=== PATIENT | male | born 1995 | race Caucasian/White ===

== ENCOUNTER 2017-07-27 16:30 | Emergency (ER) | payer OTHER ==
[~2017-07-27] VITALS: Ht 167.6 cm; Wt 68.2 kg
[~2017-07-27 16:30] MED LIST: ADV250 IH
[2017-07-27] MEDS ORDERED: ONDANSETRON HCL 4 MG/2 ML VIAL IVP ONE ×2 (17:00→21:00)
[2017-07-27] MEDS ORDERED: SODIUM CHLORIDE 0.9% 1,000 ML IV ONE (17:00)
[2017-07-27 17:10] LABS: BASOPHILS % (AUTO) 0.5 % (0.0-2.0); EOSINOPHILS % (AUTO) 0 % (1.0-6.0); HEMATOCRIT 46.8 % (41-53); HEMOGLOBIN 16.4 g/dL (13.5-17.5); LYMPHOCYTES # (AUTO) 1.7 K/uL (1.0-4.8); MEAN CORPUSCULAR HEMOGLOBIN 30.4 pg (26.0-34.0); MEAN CORPUSCULAR HGB CONC 35.2 G/dL (31.0-37.0); MEAN CORPUSCULAR VOLUME 87 fL (80-100); MONOCYTES # (AUTO) 0.6 K/uL (0.1-1.0); MONOCYTES % (AUTO) 4.9 % (2.0-9.0); NEUTROPHILS # (AUTO) 10.8 K/uL (1.8-7.7); NEUTROPHILS % (AUTO) 81.6 % (40.0-70.0); PLATELET COUNT (AUTO) 231 K/uL (150-450)
[2017-07-27 17:21] LABS: ANION GAP 18 mmol/L (8-16); CALCIUM, TOTAL 9.8 mg/dL (8.8-10.5); CARBON DIOXIDE 20 mmol/L (22-29); CHLORIDE 107 mmol/L (98-107); CREATININE 1.12 mg/dL (0.60-1.30); GLOMERULAR FILTR. RATE CALC > 60 mL/min (>60); GLUCOSE,RANDOM 113 mg/dL (70-110); POTASSIUM 4.2 mmol/L (3.5-5.1); SODIUM SERUM 145 mmol/L (136-145); UREA NITROGEN, BLOOD 13 mg/dL (7-18)
[2017-07-27 17:27] LABS: ALANINE AMINOTRANSFERASE 94 U/L (12-78); ALBUMIN 4.8 g/dL (3.4-5.0); ALKALINE PHOSPHATASE 92 U/L (46-116); ASPARTATE AMINOTRANSFERASE 35 U/L (15-37); BILIRUBIN,TOTAL 1.8 mg/dL (0.1-1.0); TOTAL PROTEIN, SERUM 8.3 g/dL (6.4-8.2)
[2017-07-27 17:53] LABS: PLATELET MORPHOLOGY COMMENT NORMAL
[2017-07-27 20:42] LABS: AMPHET/METH SCREEN,URINE NEGATIVE (NEGATIVE); BARBITURATE SCREEN, URINE NEGATIVE (NEGATIVE); BENZODIAZEPINES SCREEN,URINE NEGATIVE (NEGATIVE); CANNABINOID SCREEN,URINE NEGATIVE (NEGATIVE); COCAINE SCREEN,URINE NEGATIVE (NEGATIVE); METHADONE SCREEN, URINE NEGATIVE (NEGATIVE); OPIATE SCREEN,URINE NEGATIVE (NEGATIVE)
[2017-07-27 20:44] LABS: PHENCYCLIDINE SCREEN,URINE NEGATIVE (NEGATIVE)
[2017-07-27 21:06] VITALS: BP 116/68
== END 2017-07-27 21:10 | disposition home or self-care (01) ==
LOC: EMS 16:32
DX: F41.9 Anxiety disorder, unspecified (principal); K29.20 Alcoholic gastritis without bleeding; J45.909 Unspecified asthma, uncomplicated; Z88.0 Allergy status to penicillin; Z79.899 Other long term (current) drug therapy
CPT/HCPCS: 36415; 80053; 80307; 85025; 96374; 96376; 99284; G0480; J2405; J7030

== ENCOUNTER 2019-06-27 07:53 | Emergency (ER) | payer OTHER ==
[~2019-06-27] VITALS: Ht 170.2 cm; Wt 70.5 kg
[2019-06-27] MEDS ORDERED: ACETAMINOPHEN 500 MG TABLET PO ONE (08:15)
[2019-06-27] MEDS ORDERED: SODIUM CHLORIDE 0.9% 1,000 ML IV ONE (08:15)
[2019-06-27] MEDS ORDERED: KETOROLAC TROMETHAMINE 30 MG/ML VIAL IVP ONE (08:15)
[2019-06-27] MEDS ORDERED: ONDANSETRON HCL 4 MG/2 ML VIAL IVP ONE (08:15)
[2019-06-27] MEDS ORDERED: FAMOTIDINE 10 MG/ML 2 ML VIAL IVP ONE (08:15)
[2019-06-27] MEDS ORDERED: MAG HYDROX/AL HYDROX/SIMETH 30 ML SUSP UDCUP PO ONE (08:15)
[2019-06-27] MEDS ORDERED: IOVERSOL 320 MG/ML 100 ML VIAL ONE (08:17)
[2019-06-27] MEDS ORDERED: SODIUM CHLORIDE 0.9% 100 ML ONE (08:17)
[2019-06-27 08:34] LABS: BASOPHILS % (AUTO) 0.9 % (0.0-2.0); HEMATOCRIT 48.7 % (41-53); HEMOGLOBIN 16.7 g/dL (13.5-17.5); LYMPHOCYTES # (AUTO) 2.2 K/uL (1.0-4.8); LYMPHOCYTES % (AUTO) 30.9 % (22.0-44.0); MEAN CORPUSCULAR HEMOGLOBIN 30.7 pg (26.0-34.0); MEAN CORPUSCULAR HGB CONC 34.2 G/dL (31.0-37.0); MEAN CORPUSCULAR VOLUME 90 fL (80-100); MONOCYTES # (AUTO) 0.5 K/uL (0.1-1.0); MONOCYTES % (AUTO) 6.8 % (2.0-9.0); NEUTROPHILS # (AUTO) 4.2 K/uL (1.8-7.7); NEUTROPHILS % (AUTO) 59.4 % (40.0-70.0); PLATELET COUNT (AUTO) 231 K/uL (150-450); RED BLOOD CELL COUNT(AUTO) 5.43 MIL/uL (4.50-5.90); RED CELL DISTRIBUTION WIDTH 13.3 % (11.5-14.5)
[2019-06-27 08:46] LABS: ANION GAP 14 mmol/L (8-16); CALCIUM, TOTAL 9.5 mg/dL (8.8-10.5); CARBON DIOXIDE 23 mmol/L (22-29); CHLORIDE 103 mmol/L (98-107); CREATININE 1.08 mg/dL (0.60-1.30); GLOMERULAR FILTR. RATE CALC > 60 mL/min (>60); GLUCOSE,RANDOM 95 mg/dL (70-110); POTASSIUM 3.8 mmol/L (3.5-5.1); SODIUM SERUM 140 mmol/L (136-145); UREA NITROGEN, BLOOD 13 mg/dL (7-18)
[2019-06-27 08:49] LABS: ALANINE AMINOTRANSFERASE 83 U/L (12-78); ALBUMIN 4.3 g/dL (3.4-5.0); ALKALINE PHOSPHATASE 79 U/L (46-116); ASPARTATE AMINOTRANSFERASE 32 U/L (15-37); LIPASE 124 U/L (73-393); TOTAL PROTEIN, SERUM 7.6 g/dL (6.4-8.2)
[2019-06-27 09:02] LABS: BILIRUBIN,TOTAL 2.4 mg/dL (0.1-1.0)
[2019-06-27 09:46] LABS: APPEARANCE,URINE CLEAR (CLEAR); BILIRUBIN,URINE NEGATIVE (NEGATIVE); GLUCOSE, URINE (UA) NEGATIVE (NEGATIVE); KETONES,URINE NEGATIVE (NEGATIVE); LEUKOCYTE ESTERASE ,URINE NEGATIVE (NEGATIVE); NITRATE,URINE NEGATIVE (NEGATIVE); OCCULT BLOOD,URINE NEGATIVE (NEGATIVE); PH,URINE 6.5 (5.0-8.0); PROTEIN,URINE NEGATIVE (NEGATIVE); UROBILINOGEN,URINE 0.2 mg/dL (<=1.0)
[2019-06-27 10:30] VITALS: BP 121/66
== END 2019-06-27 10:40 | disposition home or self-care (01) ==
LOC: EMS 07:54
DX: R10.33 Periumbilical pain (principal); R11.0 Nausea; J45.909 Unspecified asthma, uncomplicated; Z88.0 Allergy status to penicillin
CPT/HCPCS: 36415; 74177; 80053; 81003; 83690; 85025; 96374; 96375; 99285; J1885; J2405; J3490; J7030; J7050; Q9967

== ENCOUNTER 2019-08-09 17:30 | Inpatient (IN) | payer MEDICAID, OTHER ==
[~2019-08-09] VITALS: Ht 170.2 cm; Wt 66.2 kg
[2019-08-09 19:50] LABS: BASOPHILS % (AUTO) 0.7 % (0.0-2.0); EOSINOPHILS % (AUTO) 0.4 % (1.0-6.0); HEMATOCRIT 48.7 % (41-53); HEMOGLOBIN 16.4 g/dL (13.5-17.5); LYMPHOCYTES # (AUTO) 2.6 K/uL (1.0-4.8); MEAN CORPUSCULAR HEMOGLOBIN 30.3 pg (26.0-34.0); MEAN CORPUSCULAR HGB CONC 33.7 G/dL (31.0-37.0); MEAN CORPUSCULAR VOLUME 90 fL (80-100); MONOCYTES # (AUTO) 0.7 K/uL (0.1-1.0); MONOCYTES % (AUTO) 4.8 % (2.0-9.0); NEUTROPHILS # (AUTO) 10.2 K/uL (1.8-7.7); NEUTROPHILS % (AUTO) 75.1 % (40.0-70.0); PLATELET COUNT (AUTO) 243 K/uL (150-450); RED BLOOD CELL COUNT(AUTO) 5.41 MIL/uL (4.50-5.90); RED CELL DISTRIBUTION WIDTH 13.2 % (11.5-14.5)
[2019-08-09] MEDS ORDERED: LIDOCAINE 5% TRANSDERMAL PATCH TD ONE (20:15)
[2019-08-09] MEDS ORDERED: ACETAMINOPHEN 500 MG TABLET PO ONE (20:15)
[2019-08-09 20:17] LABS: ANION GAP 12 mmol/L (8-16); CALCIUM, TOTAL 9.7 mg/dL (8.8-10.5); CARBON DIOXIDE 21 mmol/L (22-29); CHLORIDE 105 mmol/L (98-107); CREATININE 1.03 mg/dL (0.60-1.30); GLOMERULAR FILTR. RATE CALC > 60 mL/min (>60); GLUCOSE,RANDOM 97 mg/dL (70-110); POTASSIUM 3.6 mmol/L (3.5-5.1); SODIUM SERUM 138 mmol/L (136-145); UREA NITROGEN, BLOOD 9 mg/dL (7-18)
[2019-08-09] MEDS ORDERED: SODIUM CHLORIDE 0.9% 100 ML ONE (20:34)
[2019-08-09] MEDS ORDERED: IOVERSOL 350 MG/ML 100 ML VIAL ONE (20:35)
[2019-08-09 20:42] LABS: ALANINE AMINOTRANSFERASE 53 U/L (12-78); ALBUMIN 4.2 g/dL (3.4-5.0); ALKALINE PHOSPHATASE 85 U/L (46-116); ASPARTATE AMINOTRANSFERASE 23 U/L (15-37); BILIRUBIN,TOTAL 0.8 mg/dL (0.1-1.0); CREATINE KINASE, TOTAL ONLY 130 U/L (39-308); TOTAL PROTEIN, SERUM 7.7 g/dL (6.4-8.2)
[2019-08-09 20:54] LABS: ACETAMINOPHEN < 2 mcg/mL (10-30); SALICYLATE < 2.8 mg/dL (2.8-20.0)
[2019-08-09 21:23] LABS: AMPHET/METH SCREEN,URINE NEGATIVE (NEGATIVE); BARBITURATE SCREEN, URINE NEGATIVE (NEGATIVE); BENZODIAZEPINES SCREEN,URINE NEGATIVE (NEGATIVE); CANNABINOID SCREEN,URINE NEGATIVE (NEGATIVE); COCAINE SCREEN,URINE NEGATIVE (NEGATIVE); METHADONE SCREEN, URINE NEGATIVE (NEGATIVE); OPIATE SCREEN,URINE NEGATIVE (NEGATIVE); PHENCYCLIDINE SCREEN,URINE NEGATIVE (NEGATIVE)
[2019-08-09 21:25] LABS: APPEARANCE,URINE CLEAR (CLEAR); BILIRUBIN,URINE NEGATIVE (NEGATIVE); GLUCOSE, URINE (UA) NEGATIVE (NEGATIVE); KETONES,URINE NEGATIVE (NEGATIVE); LEUKOCYTE ESTERASE ,URINE NEGATIVE (NEGATIVE); NITRATE,URINE NEGATIVE (NEGATIVE); OCCULT BLOOD,URINE NEGATIVE (NEGATIVE); PH,URINE 6.5 (5.0-8.0); PROTEIN,URINE NEGATIVE (NEGATIVE); UROBILINOGEN,URINE 0.2 mg/dL (<=1.0)
[2019-08-09] MEDS ORDERED: HALOPERIDOL 5 MG TABLET PO PRN (22:15)
[2019-08-09] MEDS ORDERED: ZOLPIDEM TARTRATE 10 MG TABLET PO PRN (22:15)
[2019-08-09] MEDS ORDERED: LORazepam 2 MG TABLET PO PRN (22:15)
[2019-08-09] MEDS ORDERED: OxyCODONE HCL 5 MG IR TABLET PO ONE (22:45)
[2019-08-10 10:18] VITALS: BP 138/85
[2019-08-10] MEDS ORDERED: INFLUENZA VIRUS VACCINE QVS 2019-20 (3YR+)/PF 60 MCG/0.5 ML SYRINGE IM ONE (11:45)
[2019-08-10] MEDS: BuPROPion HCL XL 150 MG ER TABLET PO SCH (13:08)
[2019-08-10 16:45] VITALS: BP 130/68
[2019-08-10] MEDS ORDERED: MAG HYDROX/AL HYDROX/SIMETH ES 30 ML SUSPENSION UDCUP PO PRN (16:45)
[2019-08-10] MEDS ORDERED: MAGNESIUM HYDROXIDE SUSPENSION 30 ML UDCUP PO PRN (16:45)
[2019-08-10] MEDS ORDERED: DOCUSATE SODIUM 100 MG CAPSULE PO PRN (16:45)
[2019-08-10] MEDS ORDERED: PETROLATUM,WHITE 28 GM JELLY TP PRN (16:45)
[2019-08-10] MEDS ORDERED: ACETAMINOPHEN 325 MG TABLET PO PRN (16:45)
[2019-08-10] MEDS ORDERED: GuaiFENesin/D-METHORPHAN [SUGAR-FREE] 200-20MG/10 ML SYRUP UDCUP PO PRN (16:45)
[2019-08-10] MEDS ORDERED: NICOTINE 14 MG/24 HOUR PATCH TD PRN (16:45)
[2019-08-10] MEDS ORDERED: CloNIDine HCL 0.1 MG TABLET PO PRN (16:45)
[2019-08-10] MEDS ORDERED: ONDANSETRON HCL 4 MG TABLET PO PRN (16:45)
[2019-08-10] MEDS ORDERED: IBUPROFEN 400 MG TABLET PO PRN (16:45)
[2019-08-10] MEDS ORDERED: ALBUTEROL SULFATE HFA 90 MCG/PUFF 8 GM INHALER IH PRN (16:45)
[2019-08-10] MEDS ORDERED: LOPERAMIDE HCL 2 MG CAPSULE PO PRN (16:45)
[2019-08-11 07:54] LABS: BASOPHILS % (AUTO) 0.7 % (0.0-2.0); EOSINOPHILS % (AUTO) 1.8 % (1.0-6.0); HEMATOCRIT 46.8 % (41-53); HEMOGLOBIN 16.1 g/dL (13.5-17.5); LYMPHOCYTES # (AUTO) 2.2 K/uL (1.0-4.8); LYMPHOCYTES % (AUTO) 31.1 % (22.0-44.0); MEAN CORPUSCULAR HEMOGLOBIN 31.2 pg (26.0-34.0); MEAN CORPUSCULAR HGB CONC 34.3 G/dL (31.0-37.0); MEAN CORPUSCULAR VOLUME 91 fL (80-100); MONOCYTES # (AUTO) 0.6 K/uL (0.1-1.0); MONOCYTES % (AUTO) 8.7 % (2.0-9.0); NEUTROPHILS % (AUTO) 57.7 % (40.0-70.0); PLATELET COUNT (AUTO) 213 K/uL (150-450); RED BLOOD CELL COUNT(AUTO) 5.15 MIL/uL (4.50-5.90); RED CELL DISTRIBUTION WIDTH 13.8 % (11.5-14.5)
[2019-08-11] MEDS: BuPROPion HCL XL 150 MG ER TABLET PO SCH (08:10)
[2019-08-11 08:23] LABS: ALANINE AMINOTRANSFERASE 55 U/L (12-78); ALKALINE PHOSPHATASE 79 U/L (46-116); ANION GAP 9 mmol/L (8-16); ASPARTATE AMINOTRANSFERASE 30 U/L (15-37); BILIRUBIN,TOTAL 2.3 mg/dL (0.1-1.0); CARBON DIOXIDE 25 mmol/L (22-29); CHLORIDE 105 mmol/L (98-107); CHOLESTEROL 139 mg/dL (131-200); CREATININE 1.11 mg/dL (0.60-1.30); GLOMERULAR FILTR. RATE CALC > 60 mL/min (>60); GLUCOSE,RANDOM 93 mg/dL (70-110); HDL CHOLESTEROL 46 mg/dL (40-60); LDL CHOL (CALC.) 76 mg/dL (0-130); POTASSIUM 4.5 mmol/L (3.5-5.1); SODIUM SERUM 139 mmol/L (136-145); TOTAL PROTEIN, SERUM 7.5 g/dL (6.4-8.2); TRIGLYCERIDES 87 mg/dL (15-150); UREA NITROGEN, BLOOD 18 mg/dL (7-18)
[2019-08-11 08:29] LABS: HEMOGLOBIN A1C 5.2 % (3.8-5.6)
[2019-08-11 08:54] VITALS: BP 140/88
[2019-08-11 17:08] VITALS: BP 141/78
[2019-08-12] MEDS: BuPROPion HCL XL 150 MG ER TABLET PO SCH (08:55)
[2019-08-12 09:53] VITALS: BP 127/75
[2019-08-12] MEDS ORDERED: BUPR75 PO (13:36)
== END 2019-08-12 15:00 | disposition home or self-care (01) | DRG 881 ==
LOC: EMS 17:31 → 3EI 08-10 02:24
PROVIDERS: ADMIT Psychiatry & Neurology Psychiatry; ATTEND Psychiatry & Neurology Psychiatry
DX: F32.9 Major depressive disorder, single episode, unspecified (principal); R45.851 Suicidal ideations; S22.41XA Multiple fractures of ribs, right side, initial encounter for closed fracture; D72.829 Elevated white blood cell count, unspecified; F10.10 Alcohol abuse, uncomplicated; F43.10 Post-traumatic stress disorder, unspecified; J45.909 Unspecified asthma, uncomplicated; G47.00 Insomnia, unspecified; F41.9 Anxiety disorder, unspecified; Y09 Assault by unspecified means; Y93.89 Activity, other specified; Y92.89 Other specified places as the place of occurrence of the external cause; Y99.8 Other external cause status; F19.10 Other psychoactive substance abuse, uncomplicated
CPT/HCPCS: 71260; 74177; 83036; G0238; G0480; G0481; J7050

== ENCOUNTER 2019-12-03 18:43 | Inpatient (IN) | payer MEDICAID ==
[~2019-12-03] VITALS: Ht 170.2 cm; Wt 82.6 kg
[~2019-12-03 18:43] MED LIST changes: -ADV250 IH; +BUPR-47 PO; +OLAN5TAB27 PO
[2019-12-03] MEDS ORDERED: OLAN5TAB2 PO (18:58)
[2019-12-03] MEDS ORDERED: BUPR75 PO (18:58)
[2019-12-03] MEDS ORDERED: ESCI20TA87 PO (19:22)
[2019-12-03] MEDS ORDERED: PRAZ1 PO (19:22)
[2019-12-03] MEDS ORDERED: OLAN10TA3 PO (19:24)
[2019-12-03] MEDS ORDERED: LORazepam 2 MG TABLET PO PRN (19:30)
[2019-12-03] MEDS ORDERED: HALOPERIDOL 5 MG TABLET PO PRN (19:30)
[2019-12-03 19:55] VITALS: BP 132/85
[2019-12-03 20:35] VITALS: BP 128/82
[2019-12-04 06:52] VITALS: BP 107/66
[2019-12-04 08:31] VITALS: BP 110/64
[2019-12-04 08:53] LABS: BASOPHILS % (AUTO) 1.2 % (0.0-2.0); EOSINOPHILS % (AUTO) 3.7 % (1.0-6.0); HEMOGLOBIN 14.5 g/dL (13.5-17.5); LYMPHOCYTES # (AUTO) 2.2 K/uL (1.0-4.8); LYMPHOCYTES % (AUTO) 33.1 % (22.0-44.0); MEAN CORPUSCULAR HEMOGLOBIN 30.5 pg (26.0-34.0); MEAN CORPUSCULAR HGB CONC 33.8 G/dL (31.0-37.0); MEAN CORPUSCULAR VOLUME 90 fL (80-100); MONOCYTES # (AUTO) 0.6 K/uL (0.1-1.0); MONOCYTES % (AUTO) 8.2 % (2.0-9.0); NEUTROPHILS # (AUTO) 3.6 K/uL (1.8-7.7); NEUTROPHILS % (AUTO) 53.8 % (40.0-70.0); PLATELET COUNT (AUTO) 175 K/uL (150-450); RED BLOOD CELL COUNT(AUTO) 4.77 MIL/uL (4.50-5.90); RED CELL DISTRIBUTION WIDTH 13.1 % (11.5-14.5)
[2019-12-04] MEDS ORDERED: BuPROPion HCL XL 150 MG ER TABLET PO SCH (09:00)
[2019-12-04 09:11] LABS: HEMOGLOBIN A1C 5.3 % (3.8-5.6)
[2019-12-04 09:47] LABS: ALANINE AMINOTRANSFERASE 55 U/L (12-78); ALBUMIN 3.5 g/dL (3.4-5.0); ALKALINE PHOSPHATASE 70 U/L (46-116); ANION GAP 9 mmol/L (8-16); ASPARTATE AMINOTRANSFERASE 26 U/L (15-37); BILIRUBIN,TOTAL 0.7 mg/dL (0.1-1.0); CALCIUM, TOTAL 8.6 mg/dL (8.8-10.5); CARBON DIOXIDE 25 mmol/L (22-29); CHLORIDE 108 mmol/L (98-107); CHOL/HDL RATIO 4.4 (4.2-7.3); CHOLESTEROL 159 mg/dL (131-200); CREATININE 1.07 mg/dL (0.60-1.30); GLOMERULAR FILTR. RATE CALC > 60 mL/min (>60); GLUCOSE,RANDOM 91 mg/dL (70-110); HDL CHOLESTEROL 36 mg/dL (40-60); LDL CHOL (CALC.) 63 mg/dL (0-130); POTASSIUM 4.3 mmol/L (3.5-5.1); SODIUM SERUM 142 mmol/L (136-145); THYROID STIMULATING HORMONE 1.54 uIU/mL (0.36-3.74); TOTAL PROTEIN, SERUM 6.9 g/dL (6.4-8.2); TRIGLYCERIDES 302 mg/dL (15-150); UREA NITROGEN, BLOOD 18 mg/dL (7-18)
[2019-12-04] MEDS ORDERED: BUPR-93 PO (13:21)
[2019-12-04 14:20] VITALS: BP 115/83
[2019-12-04 16:46] VITALS: BP 115/83
[2019-12-04] MEDS: PRAZOSIN HCL 2 MG CAPSULE PO SCH (20:22)
[2019-12-04] MEDS: OLANZapine 10 MG TABLET PO SCH (20:22)
[2019-12-05 03:50] VITALS: BP 118/70
[2019-12-05] MEDS: ESCITALOPRAM OXALATE 20 MG TABLET PO SCH (08:34)
[2019-12-05] MEDS: BuPROPion HCL XL 150 MG ER TABLET PO SCH (08:34)
[2019-12-05 09:09] VITALS: BP 130/74
[2019-12-05 16:20] VITALS: BP 136/78
[2019-12-05 20:00] VITALS: BP 118/72
[2019-12-05] MEDS: PRAZOSIN HCL 2 MG CAPSULE PO SCH (20:14)
[2019-12-05] MEDS: OLANZapine 10 MG TABLET PO SCH (20:15)
[2019-12-05] MEDS: ZOLPIDEM TARTRATE 10 MG TABLET PO PRN (21:50)
[2019-12-06 00:45] VITALS: BP 128/69
[2019-12-06] MEDS: ESCITALOPRAM OXALATE 20 MG TABLET PO SCH (08:36)
[2019-12-06] MEDS: BuPROPion HCL XL 150 MG ER TABLET PO SCH (08:36)
[2019-12-06 09:06] VITALS: BP 111/65
[2019-12-06 16:22] VITALS: BP 114/71
[2019-12-06 20:00] VITALS: BP 118/76
[2019-12-06] MEDS: OLANZapine 10 MG TABLET PO SCH (20:09)
[2019-12-06] MEDS: PRAZOSIN HCL 2 MG CAPSULE PO SCH (20:09)
[2019-12-06] MEDS: ZOLPIDEM TARTRATE 10 MG TABLET PO PRN (20:59)
[2019-12-07 06:40] VITALS: BP 110/57
[2019-12-07 08:47] VITALS: BP 114/63
[2019-12-07] MEDS: BuPROPion HCL XL 150 MG ER TABLET PO SCH (08:50)
[2019-12-07] MEDS: ESCITALOPRAM OXALATE 20 MG TABLET PO SCH (08:50)
[2019-12-07] MEDS ORDERED: PRAZ2 PO (13:25)
== END 2019-12-07 15:03 | disposition home or self-care (01) | DRG 885 ==
LOC: B2S 19:35
PROVIDERS: ADMIT Psychiatry & Neurology Psychiatry; ATTEND Psychiatry & Neurology Psychiatry
DX: F33.2 Major depressive disorder, recurrent severe without psychotic features (principal); R45.851 Suicidal ideations; E78.5 Hyperlipidemia, unspecified; F10.10 Alcohol abuse, uncomplicated; F43.10 Post-traumatic stress disorder, unspecified; J45.909 Unspecified asthma, uncomplicated; Z88.0 Allergy status to penicillin; Y92.89 Other specified places as the place of occurrence of the external cause
CPT/HCPCS: 83036; 84439; 84443; 87081

== ENCOUNTER 2020-02-02 10:11 | Inpatient (IN) | payer MEDICAID, OTHER ==
[~2020-02-02] VITALS: Ht 170.2 cm; Wt 70.1 kg
[~2020-02-02 10:11] MED LIST changes: -BUPR-47 PO; +BUPR-93 PO; +ESCI20TA87 PO; +OLAN10TA3 PO; -OLAN5TAB27 PO; +PRAZ2 PO
[2020-02-02 12:45] LABS: ANION GAP 12 mmol/L (8-16); CALCIUM, TOTAL 9.6 mg/dL (8.8-10.5); CARBON DIOXIDE 24 mmol/L (22-29); CHLORIDE 106 mmol/L (98-107); CREATININE 1.12 mg/dL (0.60-1.30); GLOMERULAR FILTR. RATE CALC > 60 mL/min (>60); GLUCOSE,RANDOM 104 mg/dL (70-110); POTASSIUM 3.8 mmol/L (3.5-5.1); SODIUM SERUM 142 mmol/L (136-145); UREA NITROGEN, BLOOD 15 mg/dL (7-18)
[2020-02-02 12:53] LABS: ALANINE AMINOTRANSFERASE 50 U/L (12-78); ALBUMIN 4.4 g/dL (3.4-5.0); ALKALINE PHOSPHATASE 84 U/L (46-116); ASPARTATE AMINOTRANSFERASE 21 U/L (15-37); BILIRUBIN,TOTAL 1.4 mg/dL (0.1-1.0); TOTAL PROTEIN, SERUM 8.1 g/dL (6.4-8.2)
[2020-02-02 13:02] LABS: BASOPHILS % (AUTO) 0.7 % (0.0-2.0); EOSINOPHILS % (AUTO) 0.7 % (1.0-6.0); HEMATOCRIT 46.5 % (41-53); HEMOGLOBIN 15.7 g/dL (13.5-17.5); LYMPHOCYTES # (AUTO) 1.9 K/uL (1.0-4.8); LYMPHOCYTES % (AUTO) 19.9 % (22.0-44.0); MEAN CORPUSCULAR HGB CONC 33.7 G/dL (31.0-37.0); MEAN CORPUSCULAR VOLUME 89 fL (80-100); MONOCYTES # (AUTO) 0.5 K/uL (0.1-1.0); MONOCYTES % (AUTO) 5.3 % (2.0-9.0); NEUTROPHILS # (AUTO) 6.8 K/uL (1.8-7.7); NEUTROPHILS % (AUTO) 73.4 % (40.0-70.0); PLATELET COUNT (AUTO) 278 K/uL (150-450); RED BLOOD CELL COUNT(AUTO) 5.23 MIL/uL (4.50-5.90); RED CELL DISTRIBUTION WIDTH 12.9 % (11.5-14.5)
[2020-02-02] MEDS ORDERED: LORazepam 1 MG TABLET PO ONE (14:15)
[2020-02-02] MEDS ORDERED: OLANZapine 5 MG TABLET PO ONE (15:00)
[2020-02-02] MEDS ORDERED: LORazepam 2 MG TABLET PO PRN (16:45)
[2020-02-02] MEDS ORDERED: OLANZapine 5 MG RAPDIS TABLET PO PRN (16:45)
[2020-02-02] MEDS ORDERED: CloNIDine HCL 0.1 MG TABLET PO PRN (18:15)
[2020-02-02] MEDS ORDERED: MAG HYDROX/AL HYDROX/SIMETH ES 30 ML SUSPENSION UDCUP PO PRN (18:15)
[2020-02-02] MEDS ORDERED: NICOTINE 14 MG/24 HOUR PATCH TD PRN (18:15)
[2020-02-02] MEDS ORDERED: LOPERAMIDE HCL 2 MG CAPSULE PO PRN (18:15)
[2020-02-02] MEDS ORDERED: ONDANSETRON HCL 4 MG TABLET PO PRN (18:15)
[2020-02-02] MEDS ORDERED: ACETAMINOPHEN 325 MG TABLET PO PRN (18:15)
[2020-02-02] MEDS ORDERED: MAGNESIUM HYDROXIDE SUSPENSION 30 ML UDCUP PO PRN (18:15)
[2020-02-02] MEDS ORDERED: GuaiFENesin/D-METHORPHAN [SUGAR-FREE] 200-20MG/10 ML SYRUP UDCUP PO PRN (18:15)
[2020-02-02] MEDS ORDERED: DOCUSATE SODIUM 100 MG CAPSULE PO PRN (18:15)
[2020-02-02] MEDS ORDERED: PETROLATUM,WHITE 28 GM JELLY TP PRN (18:15)
[2020-02-02] MEDS ORDERED: IBUPROFEN 400 MG TABLET PO PRN (18:15)
[2020-02-02] MEDS ORDERED: ALBUTEROL SULFATE HFA 90 MCG/PUFF 8 GM INHALER IH PRN (18:15)
[2020-02-02 19:57] VITALS: BP 132/73
[2020-02-02 19:59] VITALS: BP 132/73
[2020-02-03 01:54] VITALS: BP_SYST 103; BP_SYST 133; BP_DIAS 64; BP_DIAS 76
[2020-02-03 08:52] VITALS: BP 129/73
[2020-02-03] MEDS: ESCITALOPRAM OXALATE 20 MG TABLET PO SCH (13:45)
[2020-02-03 16:14] VITALS: BP 118/65
[2020-02-03 20:05] VITALS: BP 114/68
[2020-02-03] MEDS: PRAZOSIN HCL 2 MG CAPSULE PO SCH (20:07)
[2020-02-03] MEDS: OLANZapine 10 MG TABLET PO SCH (20:07)
[2020-02-04 01:29] VITALS: BP 114/56
[2020-02-04] MEDS: BuPROPion HCL XL 150 MG ER TABLET PO SCH (08:46)
[2020-02-04] MEDS: ESCITALOPRAM OXALATE 20 MG TABLET PO SCH (08:46)
[2020-02-04 08:48] VITALS: BP 130/78
[2020-02-04 16:29] VITALS: BP 129/63
[2020-02-04 20:15] VITALS: BP 124/68
[2020-02-04] MEDS: OLANZapine 10 MG TABLET PO SCH (20:18)
[2020-02-04] MEDS: PRAZOSIN HCL 2 MG CAPSULE PO SCH (20:18)
[2020-02-05 00:53] VITALS: BP 107/55
[2020-02-05] MEDS ORDERED: PNEUMOCOCCAL VACCINE POLYVALENT 0.5 ML VIAL [PPSV23] IM ONE (04:45)
[2020-02-05 08:10] VITALS: BP 121/60
[2020-02-05] MEDS: ESCITALOPRAM OXALATE 20 MG TABLET PO SCH (08:30)
[2020-02-05] MEDS: BuPROPion HCL XL 150 MG ER TABLET PO SCH (08:30)
[2020-02-05 08:41] LABS: CHOL/HDL RATIO 3.8 (4.2-7.3)
[2020-02-05 17:52] VITALS: BP 117/62
[2020-02-05] MEDS: OLANZapine 10 MG TABLET PO SCH (20:19)
[2020-02-05] MEDS: PRAZOSIN HCL 2 MG CAPSULE PO SCH (20:19)
[2020-02-06 06:39] VITALS: BP 113/67
[2020-02-06] MEDS: BuPROPion HCL XL 150 MG ER TABLET PO SCH (08:42)
[2020-02-06] MEDS: ESCITALOPRAM OXALATE 20 MG TABLET PO SCH (08:42)
[2020-02-06 09:27] VITALS: BP 130/74
[2020-02-06 16:40] VITALS: BP 117/69
[2020-02-06] MEDS: PRAZOSIN HCL 2 MG CAPSULE PO SCH (20:36)
[2020-02-06] MEDS: OLANZapine 10 MG TABLET PO SCH (20:36)
[2020-02-06] MEDS: ZOLPIDEM TARTRATE 10 MG TABLET PO PRN (20:40)
[2020-02-07 04:35] VITALS: BP 113/59
[2020-02-07] MEDS: BuPROPion HCL XL 150 MG ER TABLET PO SCH (09:06)
[2020-02-07] MEDS: ESCITALOPRAM OXALATE 20 MG TABLET PO SCH (09:06)
[2020-02-07 09:23] VITALS: BP 118/71
[2020-02-07] MEDS: OLANZapine 10 MG TABLET PO SCH (21:06)
[2020-02-07] MEDS: PRAZOSIN HCL 2 MG CAPSULE PO SCH (21:06)
[2020-02-07] MEDS: ZOLPIDEM TARTRATE 10 MG TABLET PO PRN (21:07)
[2020-02-08 00:43] VITALS: BP 118/68
[2020-02-08 08:37] VITALS: BP 129/70
[2020-02-08] MEDS: ESCITALOPRAM OXALATE 20 MG TABLET PO SCH (08:58)
[2020-02-08] MEDS: BuPROPion HCL XL 150 MG ER TABLET PO SCH (08:58)
[2020-02-08 16:22] VITALS: BP 116/70
[2020-02-08] MEDS: OLANZapine 10 MG TABLET PO SCH (20:14)
[2020-02-08] MEDS: PRAZOSIN HCL 2 MG CAPSULE PO SCH (20:14)
[2020-02-08] MEDS: ZOLPIDEM TARTRATE 10 MG TABLET PO PRN (20:23)
[2020-02-09 06:22] VITALS: BP 109/62
[2020-02-09 08:19] VITALS: BP 120/62
[2020-02-09] MEDS: ESCITALOPRAM OXALATE 20 MG TABLET PO SCH (09:20)
[2020-02-09] MEDS: BuPROPion HCL XL 150 MG ER TABLET PO SCH (09:20)
[2020-02-09] MEDS: OMEGA-3/DHA/EPA/FISH OIL 1,000 MG CAPSULE PO SCH (09:21)
[2020-02-09 16:13] VITALS: BP 127/76
[2020-02-09 20:00] VITALS: BP 132/73
[2020-02-09] MEDS: OLANZapine 10 MG TABLET PO SCH (20:05)
[2020-02-09] MEDS: PRAZOSIN HCL 2 MG CAPSULE PO SCH (20:05)
[2020-02-10 04:52] VITALS: BP 120/86
[2020-02-10] MEDS: BuPROPion HCL XL 150 MG ER TABLET PO SCH (08:49)
[2020-02-10] MEDS: OMEGA-3/DHA/EPA/FISH OIL 1,000 MG CAPSULE PO SCH (08:49)
[2020-02-10] MEDS: ESCITALOPRAM OXALATE 20 MG TABLET PO SCH (08:49)
[2020-02-10 08:52] VITALS: BP 138/83
== END 2020-02-10 17:42 | disposition home or self-care (01) | DRG 750 ==
LOC: EMS 10:14 → B2S 16:17
DX: F25.1 Schizoaffective disorder, depressive type (principal); F10.10 Alcohol abuse, uncomplicated; F31.9 Bipolar disorder, unspecified; F43.10 Post-traumatic stress disorder, unspecified; G47.00 Insomnia, unspecified; J45.909 Unspecified asthma, uncomplicated; R45.850 Homicidal ideations; R45.851 Suicidal ideations; Z20.828 Contact with and (suspected) exposure to other viral communicable diseases; Z91.5 Personal history of self-harm; Z79.899 Other long term (current) drug therapy; Z88.0 Allergy status to penicillin
CPT/HCPCS: 87426; G0480

== ENCOUNTER 2020-08-01 22:06 | Emergency (ER) | payer MEDICAID, OTHER ==
[~2020-08-01] VITALS: Ht 170.2 cm; Wt 88.6 kg
[2020-08-01 22:10] VITALS: BP 146/79
[2020-08-01] MEDS ORDERED: LAMO25TA25 PO (22:28)
[2020-08-01] MEDS ORDERED: ZIPR40CA2 PO (22:28)
[2020-08-01] MEDS ORDERED: FLUO-191 PO (22:28)
[2020-08-01] MEDS ORDERED: LORazepam 2 MG TABLET PO ONE (22:45)
== END 2020-08-01 23:02 | disposition home or self-care (01) ==
LOC: EMS 22:06
DX: F41.0 Panic disorder [episodic paroxysmal anxiety] (principal); F32.9 Major depressive disorder, single episode, unspecified
CPT/HCPCS: 99283

== ENCOUNTER 2020-10-01 20:40 | Emergency (ER) | payer OTHER ==
[~2020-10-01] VITALS: Ht 170.2 cm; Wt 88.6 kg
[~2020-10-01 20:40] MED LIST changes: -BUPR-93 PO; -ESCI20TA87 PO; +FLUO-191 PO; +LAMO25TA25 PO; -OLAN10TA3 PO; +ZIPR40CA2 PO
[2020-10-01] MEDS ORDERED: LORazepam 1 MG TABLET PO ONE (21:45)
[2020-10-01 22:52] VITALS: BP 129/80
== END 2020-10-01 23:15 | disposition home or self-care (01) ==
LOC: EMS 20:42
DX: F41.9 Anxiety disorder, unspecified (principal); F31.9 Bipolar disorder, unspecified; I10 Essential (primary) hypertension; J45.909 Unspecified asthma, uncomplicated; Z88.0 Allergy status to penicillin
CPT/HCPCS: 99283

== ENCOUNTER 2020-10-07 19:06 | Emergency (ER) | payer OTHER ==
[~2020-10-07] VITALS: Ht 170.2 cm; Wt 88.6 kg
[2020-10-07] MEDS ORDERED: ACETAMINOPHEN 325 MG TABLET PO ONE (21:15)
[2020-10-07] MEDS ORDERED: LORazepam 1 MG TABLET PO ONE (22:30)
[2020-10-07 23:00] VITALS: BP 133/71
== END 2020-10-07 23:30 | disposition home or self-care (01) ==
LOC: EMS 19:07
DX: F41.9 Anxiety disorder, unspecified (principal); F32.9 Major depressive disorder, single episode, unspecified; J45.909 Unspecified asthma, uncomplicated; Z88.0 Allergy status to penicillin; Z79.899 Other long term (current) drug therapy
CPT/HCPCS: 99283

== ENCOUNTER 2020-10-23 22:03 | Emergency (ER) | payer OTHER ==
[~2020-10-23] VITALS: Ht 170.2 cm; Wt 88.6 kg
[2020-10-23 22:17] VITALS: BP 134/48
[2020-10-23] MEDS ORDERED: VENL-68 PO (22:27)
[2020-10-23] MEDS ORDERED: MIRT-89 PO (22:27)
[2020-10-23] MEDS ORDERED: LORazepam 2 MG TABLET PO ONE (23:45)
== END 2020-10-24 01:23 | disposition home or self-care (01) ==
LOC: EMS 22:05
DX: F41.9 Anxiety disorder, unspecified (principal); F31.9 Bipolar disorder, unspecified; J45.909 Unspecified asthma, uncomplicated; Z88.0 Allergy status to penicillin
CPT/HCPCS: 99283

== ENCOUNTER 2021-03-09 22:44 | Emergency (ER) | payer OTHER ==
[~2021-03-09] VITALS: Ht 170.2 cm; Wt 93.2 kg
[~2021-03-09 22:44] MED LIST changes: -FLUO-191 PO; -LAMO25TA25 PO; +MIRT-89 PO; +VENL-68 PO; -ZIPR40CA2 PO
[2021-03-10 00:15] VITALS: BP 127/77
[2021-03-10] MEDS ORDERED: LORazepam 2 MG TABLET PO ONE (00:15)
== END 2021-03-10 00:33 | disposition home or self-care (01) ==
LOC: EMS 22:47
DX: F43.12 Post-traumatic stress disorder, chronic (principal); F41.9 Anxiety disorder, unspecified; J45.909 Unspecified asthma, uncomplicated; F31.9 Bipolar disorder, unspecified; Z88.0 Allergy status to penicillin
CPT/HCPCS: 99283

== ENCOUNTER 2021-08-01 22:43 | Emergency (ER) | payer OTHER ==
[~2021-08-01] VITALS: Ht 154.9 cm; Wt 81.8 kg
[2021-08-02] MEDS ORDERED: TraMADol HCL 50 MG TABLET PO ONE (00:45)
[2021-08-02] MEDS ORDERED: TRAM50TA4 PO (01:15)
[2021-08-02 01:22] VITALS: BP 146/79
== END 2021-08-02 01:23 | disposition home or self-care (01) ==
LOC: EMS 22:53
DX: K08.89 Other specified disorders of teeth and supporting structures (principal); R51.9 Headache, unspecified; F41.9 Anxiety disorder, unspecified; F31.9 Bipolar disorder, unspecified; Z88.0 Allergy status to penicillin; Z79.899 Other long term (current) drug therapy; J45.909 Unspecified asthma, uncomplicated
CPT/HCPCS: 99283

== ENCOUNTER 2022-11-17 19:27 | Emergency (ER) | payer OTHER ==
[~2022-11-17] VITALS: Ht 170.2 cm; Wt 90.0 kg
[~2022-11-17 19:27] MED LIST changes: +TRAM-559 PO
[2022-11-17 19:45] VITALS: TEMP 98
[2022-11-17 20:04] LABS: COVID AG,FIA SOURCE NASOPHARYNGEAL
[2022-11-17 20:41] LABS: INFLUENZA TYPE A NEGATIVE FOR TYPE A (NEGATIVE); INFLUENZA TYPE B NEGATIVE FOR TYPE B (NEGATIVE)
[2022-11-17] MEDS ORDERED: NIRM1TAB4 PO ×2 (20:51→21:09)
[2022-11-17 21:00] VITALS: BP 128/71; PULSE 102; RESP 18
== END 2022-11-17 21:02 | disposition home or self-care (01) ==
LOC: EMS 19:28
DX: U07.1 COVID-19 (principal); F41.9 Anxiety disorder, unspecified; J45.909 Unspecified asthma, uncomplicated; F32.A Depression, unspecified; Z88.0 Allergy status to penicillin
CPT/HCPCS: 71045; 87430; 87804; 99284

== ENCOUNTER 2023-01-17 19:39 | Inpatient (IN) | payer OTHER ==
[~2023-01-17] VITALS: Ht 167.6 cm; Wt 93.2 kg
[~2023-01-17 19:39] MED LIST changes: +NIRM1TAB4 PO
[2023-01-17] MEDS ORDERED: ATOM40CA9 PO (19:56)
[2023-01-17] MEDS ORDERED: QUET200T PO (19:56)
[2023-01-17] MEDS ORDERED: PROP20TA18 PO (19:56)
[2023-01-17] MEDS ORDERED: DIVA500T53 PO (19:56)
[2023-01-17] MEDS ORDERED: ACETAMINOPHEN 500 MG TABLET PO ONE (21:00)
[2023-01-17 22:10] LABS: COVID AG,FIA SOURCE NASOPHARYNGEAL
[2023-01-17 22:31] LABS: INFLUENZA TYPE A NEGATIVE FOR TYPE A (NEGATIVE); INFLUENZA TYPE B NEGATIVE FOR TYPE B (NEGATIVE)
[2023-01-17 22:49] LABS: BASOPHILS % (AUTO) 0.5 % (0.0-2.0); EOSINOPHILS % (AUTO) 0.1 % (1.0-6.0); HEMATOCRIT 46.2 % (41-53); HEMOGLOBIN 15.5 g/dL (13.5-17.5); LYMPHOCYTES # (AUTO) 1.2 K/uL (1.0-4.8); LYMPHOCYTES % (AUTO) 7.3 % (22.0-44.0); MEAN CORPUSCULAR HEMOGLOBIN 30.8 pg (26.0-34.0); MEAN CORPUSCULAR HGB CONC 33.5 G/dL (31.0-37.0); MEAN CORPUSCULAR VOLUME 92 fL (80-100); MONOCYTES # (AUTO) 1.5 K/uL (0.1-1.0); MONOCYTES % (AUTO) 8.7 % (2.0-9.0); NEUTROPHILS # (AUTO) 14.1 K/uL (1.8-7.7); NEUTROPHILS % (AUTO) 83.4 % (40.0-70.0); PLATELET COUNT (AUTO) 160 K/uL (150-450); RED BLOOD CELL COUNT(AUTO) 5.03 MIL/uL (4.50-5.90); RED CELL DISTRIBUTION WIDTH 13.9 % (11.5-14.5)
[2023-01-17 23:01] LABS: ANION GAP 17 mmol/L (8-16); CALCIUM, TOTAL 9.6 mg/dL (8.8-10.5); CARBON DIOXIDE 17 mmol/L (22-29); CHLORIDE 101 mmol/L (98-107); CREATININE 1.29 mg/dL (0.60-1.30); GLOMERULAR FILTR. RATE CALC > 60 mL/min (>60); GLUCOSE,RANDOM 114 mg/dL (70-110); POTASSIUM 3.9 mmol/L (3.5-5.1); SODIUM SERUM 135 mmol/L (136-145)
[2023-01-17 23:06] LABS: ALANINE AMINOTRANSFERASE 102 U/L (12-78); ALBUMIN 3.7 g/dL (3.4-5.0); ALKALINE PHOSPHATASE 77 U/L (46-116); ASPARTATE AMINOTRANSFERASE 51 U/L (15-37); BILIRUBIN,TOTAL 1.4 mg/dL (0.1-1.0); LIPASE 32 U/L (16-77); TOTAL PROTEIN, SERUM 7.3 g/dL (6.4-8.2)
[2023-01-17] MEDS ORDERED: 0.9% SODIUM CHLORIDE 10 ML SYRINGE IVP PRN (23:15)
[2023-01-17] MEDS ORDERED: SODIUM CHLORIDE 0.9% 2,700 ML IV ONE (23:15)
[2023-01-17] MEDS ORDERED: ONDANSETRON HCL 4 MG/2 ML VIAL IVP ONE (23:30)
[2023-01-17] MEDS ORDERED: HYDROmorphone HCL 2 MG/ML SYRINGE IVP ONE (23:30)
[2023-01-17 23:38] LABS: APPEARANCE,URINE CLEAR (CLEAR); BILIRUBIN,URINE NEGATIVE (NEGATIVE); GLUCOSE, URINE (UA) NEGATIVE (NEGATIVE); KETONES,URINE NEGATIVE (NEGATIVE); LEUKOCYTE ESTERASE ,URINE NEGATIVE (NEGATIVE); NITRATE,URINE NEGATIVE (NEGATIVE); OCCULT BLOOD,URINE NEGATIVE (NEGATIVE); PROTEIN,URINE 30-70 mg/dL (NEGATIVE); SPECIFIC GRAVITIY, URINE 1.037 (1.003-1.030); UROBILINOGEN,URINE <=1.0 mg/dL (<=1.0)
[2023-01-18 00:05] LABS: LACTIC ACID 2.4 mmol/L (0.4-2.0)
[2023-01-18] MEDS ORDERED: LEVOFLOXACIN 500 MG/D5% WATER 100 ML IV ONE (00:15)
[2023-01-18] MEDS ORDERED: MetroNIDAZOLE 500 MG/NACL 100 ML IV ONE (02:00)
[2023-01-18] MEDS ORDERED: 0.9% SODIUM CHLORIDE 10 ML SYRINGE IVP PRN (02:00)
[2023-01-18] MEDS ORDERED: ONDANSETRON HCL 4 MG/2 ML VIAL IVP PRN (02:00)
[2023-01-18] MEDS ORDERED: ACETAMINOPHEN 325 MG TABLET PO PRN (02:00)
[2023-01-18 02:40] VITALS: BP 121/78; PULSE 90; RESP 18; TEMP 98.3
[2023-01-18] MEDS ORDERED: *CLINICAL-LEVOFLOXACIN IVPB DOSING CLINICAL ONE (03:15)
[2023-01-18] MEDS ORDERED: PNEUMOCOCCAL VACCINE POLYVALENT 0.5 ML SYRINGE [PPSV23] IM. ONE (04:30)
[2023-01-18] MEDS: RINGERS SOLUTION,LACTATED 1,000 ML IV SCH ×2 (05:34→21:13)
[2023-01-18 05:37] VITALS: BP 113/76; PULSE 96; RESP 18; TEMP 98.5
[2023-01-18] MEDS: ONDANSETRON HCL 4 MG/2 ML VIAL IVP PRN (05:37)
[2023-01-18] MEDS: ACETAMINOPHEN 325 MG TABLET PO PRN (05:39)
[2023-01-18] MEDS: MetroNIDAZOLE 500 MG TABLET PO SCH ×2 (08:14→17:08)
[2023-01-18] MEDS: DOCUSATE SODIUM 100 MG CAPSULE PO SCH ×3 (08:14→21:00)
[2023-01-18 08:25] VITALS: BP 117/77; PULSE 98; RESP 20; TEMP 99.8
[2023-01-18] MEDS: MORPHINE SULFATE 2 MG/ML SYRINGE IVP PRN ×3 (08:58→21:17)
[2023-01-18 13:43] LABS: BASOPHILS % (AUTO) 0.3 % (0.0-2.0); EOSINOPHILS % (AUTO) 0.1 % (1.0-6.0); HEMATOCRIT 41.9 % (41-53); HEMOGLOBIN 13.8 g/dL (13.5-17.5); LYMPHOCYTES % (AUTO) 8.6 % (22.0-44.0); MEAN CORPUSCULAR HEMOGLOBIN 30.5 pg (26.0-34.0); MEAN CORPUSCULAR HGB CONC 32.9 G/dL (31.0-37.0); MEAN CORPUSCULAR VOLUME 93 fL (80-100); MONOCYTES # (AUTO) 0.9 K/uL (0.1-1.0); NEUTROPHILS # (AUTO) 9.6 K/uL (1.8-7.7); PLATELET COUNT (AUTO) 115 K/uL (150-450); RED BLOOD CELL COUNT(AUTO) 4.51 MIL/uL (4.50-5.90)
[2023-01-18 13:51] LABS: ANION GAP 11 mmol/L (8-16); CALCIUM, TOTAL 8.3 mg/dL (8.8-10.5); CARBON DIOXIDE 23 mmol/L (22-29); CHLORIDE 105 mmol/L (98-107); CREATININE 0.93 mg/dL (0.60-1.30); GLOMERULAR FILTR. RATE CALC > 60 mL/min (>60); GLUCOSE,RANDOM 97 mg/dL (70-110); POTASSIUM 4.1 mmol/L (3.5-5.1); SODIUM SERUM 139 mmol/L (136-145)
[2023-01-18 13:57] LABS: ALANINE AMINOTRANSFERASE 80 U/L (12-78); ALKALINE PHOSPHATASE 60 U/L (46-116); ASPARTATE AMINOTRANSFERASE 41 U/L (15-37); BILIRUBIN,TOTAL 1.2 mg/dL (0.1-1.0); TOTAL PROTEIN, SERUM 6.2 g/dL (6.4-8.2)
[2023-01-18 16:56] VITALS: BP 150/85; PULSE 85; RESP 20; TEMP 98.4
[2023-01-18] MEDS ORDERED: DIPHENOXYLATE/ATROP 2.5-0.025 MG TABLET PO PRN (18:45)
[2023-01-18 19:30] VITALS: BP 138/85; PULSE 98; RESP 20; TEMP 99.5
[2023-01-18] MEDS: QUEtiapine FUMARATE 200 MG TABLET PO SCH (21:14)
[2023-01-19] MEDS ORDERED: SODIUM CHLORIDE 0.9% 0 ML IV ONE (00:21)
[2023-01-19] MEDS: MetroNIDAZOLE 500 MG TABLET PO SCH ×4 (00:27→23:52)
[2023-01-19] MEDS: AZITHROMYCIN 500 MG/NS 250 ML IV SCH ×2 (00:28→23:52)
[2023-01-19] MEDS ORDERED: LEVOFLOXACIN 500 MG/D5% WATER 100 ML IV SCH (01:00)
[2023-01-19] MEDS: ONDANSETRON HCL 4 MG/2 ML VIAL IVP PRN ×2 (02:35→10:39)
[2023-01-19 02:36] VITALS: BP 110/60; PULSE 80; RESP 18; TEMP 98.7
[2023-01-19] MEDS: MORPHINE SULFATE 2 MG/ML SYRINGE IVP PRN ×2 (02:36→10:39)
[2023-01-19 07:03] LABS: BASOPHILS % (AUTO) 0.3 % (0.0-2.0); EOSINOPHILS % (AUTO) 0.1 % (1.0-6.0); HEMATOCRIT 39.2 % (41-53); HEMOGLOBIN 13.2 g/dL (13.5-17.5); LYMPHOCYTES # (AUTO) 3.1 K/uL (1.0-4.8); LYMPHOCYTES % (AUTO) 28.4 % (22.0-44.0); MEAN CORPUSCULAR HEMOGLOBIN 31.8 pg (26.0-34.0); MEAN CORPUSCULAR HGB CONC 33.6 G/dL (31.0-37.0); MEAN CORPUSCULAR VOLUME 95 fL (80-100); MONOCYTES # (AUTO) 1.4 K/uL (0.1-1.0); MONOCYTES % (AUTO) 12.6 % (2.0-9.0); NEUTROPHILS # (AUTO) 6.5 K/uL (1.8-7.7); NEUTROPHILS % (AUTO) 58.6 % (40.0-70.0); PLATELET COUNT (AUTO) 111 K/uL (150-450); RED BLOOD CELL COUNT(AUTO) 4.15 MIL/uL (4.50-5.90); RED CELL DISTRIBUTION WIDTH 13.9 % (11.5-14.5)
[2023-01-19 07:23] LABS: ALANINE AMINOTRANSFERASE 84 U/L (12-78); ALBUMIN 2.8 g/dL (3.4-5.0); ALKALINE PHOSPHATASE 53 U/L (46-116); ANION GAP 9 mmol/L (8-16); ASPARTATE AMINOTRANSFERASE 48 U/L (15-37); BILIRUBIN,TOTAL 0.8 mg/dL (0.1-1.0); CALCIUM, TOTAL 8.2 mg/dL (8.8-10.5); CARBON DIOXIDE 25 mmol/L (22-29); CHLORIDE 106 mmol/L (98-107); CREATININE 1.01 mg/dL (0.60-1.30); GLOMERULAR FILTR. RATE CALC > 60 mL/min (>60); GLUCOSE,RANDOM 90 mg/dL (70-110); POTASSIUM 4.3 mmol/L (3.5-5.1); SODIUM SERUM 140 mmol/L (136-145)
[2023-01-19 08:00] VITALS: BP 110/64; PULSE 88; RESP 17; TEMP 98.9
[2023-01-19] MEDS: HEPARIN SODIUM,PORCINE 5,000 UNITS/ML VIAL SQ SCH ×3 (08:26→23:52)
[2023-01-19] MEDS: DOCUSATE SODIUM 100 MG CAPSULE PO SCH ×2 (09:00→19:36)
[2023-01-19] MEDS: RINGERS SOLUTION,LACTATED 1,000 ML IV SCH (10:49)
[2023-01-19] MEDS: AZTREONAM 2 GM in DEXTROSE 5%-WATER 50 ML IV SCH ×2 (13:12→20:16)
[2023-01-19 20:00] VITALS: BP 121/65; PULSE 86; RESP 20; TEMP 98.3
[2023-01-19] MEDS: ACETAMINOPHEN 325 MG TABLET PO PRN (20:16)
[2023-01-19] MEDS: QUEtiapine FUMARATE 200 MG TABLET PO SCH (20:16)
[2023-01-19 21:27] LABS: C.DIFF GDH ANTIGEN, Stool Negative (Negative); C.DIFF TOXINS A&B, Stool Negative (Negative)
[2023-01-20] MEDS: AZTREONAM 2 GM in DEXTROSE 5%-WATER 50 ML IV SCH ×3 (03:57→20:48)
[2023-01-20 04:35] VITALS: BP 114/69; PULSE 56; RESP 16; TEMP 97.6
[2023-01-20 07:52] VITALS: BP 127/82; PULSE 67; RESP 19; TEMP 97.8
[2023-01-20] MEDS: RINGERS SOLUTION,LACTATED 1,000 ML IV SCH (08:07)
[2023-01-20] MEDS: MetroNIDAZOLE 500 MG TABLET PO SCH ×3 (08:07→23:29)
[2023-01-20] MEDS: DOCUSATE SODIUM 100 MG CAPSULE PO SCH ×2 (08:07→21:00)
[2023-01-20] MEDS: HEPARIN SODIUM,PORCINE 5,000 UNITS/ML VIAL SQ SCH ×3 (08:08→23:29)
[2023-01-20 16:52] LABS: BASOPHILS % (AUTO) 1.6 % (0.0-2.0); EOSINOPHILS % (AUTO) 2.7 % (1.0-6.0); HEMATOCRIT 46.7 % (41-53); HEMOGLOBIN 15.5 g/dL (13.5-17.5); LYMPHOCYTES # (AUTO) 1.9 K/uL (1.0-4.8); LYMPHOCYTES % (AUTO) 32.3 % (22.0-44.0); MEAN CORPUSCULAR HEMOGLOBIN 30.6 pg (26.0-34.0); MEAN CORPUSCULAR HGB CONC 33.2 G/dL (31.0-37.0); MEAN CORPUSCULAR VOLUME 92 fL (80-100); MONOCYTES # (AUTO) 0.6 K/uL (0.1-1.0); MONOCYTES % (AUTO) 9.5 % (2.0-9.0); NEUTROPHILS # (AUTO) 3.2 K/uL (1.8-7.7); NEUTROPHILS % (AUTO) 53.9 % (40.0-70.0); PLATELET COUNT (AUTO) 194 K/uL (150-450); RED BLOOD CELL COUNT(AUTO) 5.07 MIL/uL (4.50-5.90); RED CELL DISTRIBUTION WIDTH 13.6 % (11.5-14.5)
[2023-01-20 16:58] LABS: ANION GAP 11 mmol/L (8-16); CALCIUM, TOTAL 9.4 mg/dL (8.8-10.5); CARBON DIOXIDE 25 mmol/L (22-29); CHLORIDE 103 mmol/L (98-107); CREATININE 1.01 mg/dL (0.60-1.30); GLOMERULAR FILTR. RATE CALC > 60 mL/min (>60); GLUCOSE,RANDOM 138 mg/dL (70-110); POTASSIUM 3.1 mmol/L (3.5-5.1); SODIUM SERUM 139 mmol/L (136-145)
[2023-01-20 17:30] VITALS: BP 127/76; PULSE 94; RESP 20; TEMP 98.1
[2023-01-20] MEDS ORDERED: POTASSIUM CHLORIDE 20 MEQ ER TABLET PO ONE (19:00)
[2023-01-20 20:41] VITALS: BP 122/75; PULSE 90; RESP 20; TEMP 98.2
[2023-01-20] MEDS: QUEtiapine FUMARATE 200 MG TABLET PO SCH (20:48)
[2023-01-21] MEDS: AZITHROMYCIN 500 MG/NS 250 ML IV SCH (00:27)
[2023-01-21] MEDS: RINGERS SOLUTION,LACTATED 1,000 ML IV SCH ×4 (00:28→11:59)
[2023-01-21] MEDS: AZTREONAM 2 GM in DEXTROSE 5%-WATER 50 ML IV SCH ×2 (04:20→13:20)
[2023-01-21 04:52] VITALS: BP 121/72; PULSE 91; RESP 20; TEMP 98.1
[2023-01-21] MEDS ORDERED: SODIUM CHLORIDE 0.9% 500 ML IV ONE (05:59)
[2023-01-21 07:00] VITALS: BP 111/62; PULSE 78; RESP 20; TEMP 97.6
[2023-01-21] MEDS: MetroNIDAZOLE 500 MG TABLET PO SCH (08:32)
[2023-01-21] MEDS: HEPARIN SODIUM,PORCINE 5,000 UNITS/ML VIAL SQ SCH (08:32)
[2023-01-21] MEDS: DOCUSATE SODIUM 100 MG CAPSULE PO SCH (08:32)
[2023-01-21 19:06] LABS: QUANTIFERON, TB GOLD PLUS Positive (Negative)
== END 2023-01-21 15:20 | disposition home or self-care (01) | DRG 720 ==
LOC: EMS 19:41 → 6S 01-18 02:17
PROVIDERS: ADMIT Internal Medicine; ATTEND Hospitalist
PROC: 3E0234Z Introduction of Serum, Toxoid and Vaccine into Muscle, Percutaneous Approach (ICD-10-PCS; principal; 2023-01-18)
DX: A41.9 Sepsis, unspecified organism (principal); D69.6 Thrombocytopenia, unspecified; J45.909 Unspecified asthma, uncomplicated; F32.A Depression, unspecified; I88.0 Nonspecific mesenteric lymphadenitis; F41.9 Anxiety disorder, unspecified; F90.9 Attention-deficit hyperactivity disorder, unspecified type; Z20.822 Contact with and (suspected) exposure to COVID-19; G47.00 Insomnia, unspecified; F43.10 Post-traumatic stress disorder, unspecified; Z88.0 Allergy status to penicillin; Z79.899 Other long term (current) drug therapy; Z82.49 Family history of ischemic heart disease and other diseases of the circulatory system
CPT/HCPCS: 71045; 74176; 76700; 80048; 80053; 81003; 82271; 83605; 83690; 84132; 85025; 86480; 87040; 87045; 87324; 87449; 87804; 89055; 93005; 99291; J0456; J1170; J1644; J1956; J2270; J2405; J3490; J7040; J7060; J7120; 36415-L1; 36415-TC

== ENCOUNTER 2023-05-07 21:17 | Emergency (ER) | payer OTHER ==
[~2023-05-07] VITALS: Ht 170.2 cm; Wt 96.4 kg
[~2023-05-07 21:17] MED LIST changes: +ATOM40CA9 PO; +DIVA500T53 PO; -MIRT-89 PO; -NIRM1TAB4 PO; +PROP20TA18 PO; +QUET200T PO; -TRAM-559 PO
[2023-05-07 21:53] VITALS: TEMP 98.4
[2023-05-07] MEDS ORDERED: CLON-592 PO (21:56)
[2023-05-07 22:57] LABS: COVID AG,FIA SOURCE NASAL SWAB
[2023-05-07 23:22] LABS: SARS-COV2 (COVID) ANTIGEN,FIA Negative (Negative)
[2023-05-07 23:23] LABS: INFLUENZA TYPE A NEGATIVE FOR TYPE A (NEGATIVE); INFLUENZA TYPE B NEGATIVE FOR TYPE B (NEGATIVE)
[2023-05-08 00:55] VITALS: BP 128/79; PULSE 110; RESP 20
== END 2023-05-08 01:17 | disposition home or self-care (01) ==
LOC: EMS 21:19
DX: J06.9 Acute upper respiratory infection, unspecified (principal); F41.9 Anxiety disorder, unspecified; J45.909 Unspecified asthma, uncomplicated; F32.A Depression, unspecified; Z88.0 Allergy status to penicillin; Z20.822 Contact with and (suspected) exposure to COVID-19
CPT/HCPCS: 87804; 99283

== ENCOUNTER 2023-09-01 16:04 | Emergency (ER) | payer OTHER ==
[~2023-09-01] VITALS: Ht 170.2 cm; Wt 99.5 kg
[~2023-09-01 16:04] MED LIST changes: -ATOM40CA9 PO; +ATOM80CA3 PO; +DIVA-112 PO; -DIVA500T53 PO; -PRAZ2 PO; -PROP20TA18 PO; +PROP20TA96 PO; +QUET100T34 PO; -QUET200T PO; +VENL-67 PO; -VENL-68 PO
[2023-09-01] MEDS ORDERED: PRED-554 PO (19:26)
[2023-09-01] MEDS ORDERED: AZIT250T9 PO (19:26)
[2023-09-01 20:00] VITALS: BP 144/72; PULSE 80; RESP 20; TEMP 98.8
[2023-09-01] MEDS: PredniSONE 20 MG TABLET PO ONE (20:03)
== END 2023-09-01 20:29 | disposition home or self-care (01) ==
LOC: EMS 16:04
DX: J45.909 Unspecified asthma, uncomplicated (principal); J06.9 Acute upper respiratory infection, unspecified; F41.9 Anxiety disorder, unspecified; F32.A Depression, unspecified; Z88.0 Allergy status to penicillin
CPT/HCPCS: 99283; J7512

== ENCOUNTER 2023-09-01 21:25 | Emergency (ER) | payer OTHER ==
[~2023-09-01 21:25] MED LIST changes: +AZIT250T9 PO; +PRED-554 PO
[2023-09-01 21:40] VITALS: PULSE 103; RESP 3; TEMP 99.1
[2023-09-01 22:20] LABS: BASOPHILS % (AUTO) 0.8 % (0.0-2.0); EOSINOPHILS % (AUTO) 0.6 % (1.0-6.0); HEMATOCRIT 48.6 % (41-53); HEMOGLOBIN 16.6 g/dL (13.5-17.5); LYMPHOCYTES # (AUTO) 2.3 K/uL (1.0-4.8); LYMPHOCYTES % (AUTO) 16.6 % (22.0-44.0); MEAN CORPUSCULAR HEMOGLOBIN 30.8 pg (26.0-34.0); MEAN CORPUSCULAR HGB CONC 34.1 G/dL (31.0-37.0); MEAN CORPUSCULAR VOLUME 90 fL (80-100); MONOCYTES # (AUTO) 1.1 K/uL (0.1-1.0); NEUTROPHILS # (AUTO) 10.3 K/uL (1.8-7.7); PLATELET COUNT (AUTO) 188 K/uL (150-450); RED BLOOD CELL COUNT(AUTO) 5.39 MIL/uL (4.50-5.90); WHITE BLOOD COUNT (AUTO) 13.9 K/uL (4.5-11.0)
[2023-09-01 22:30] LABS: ANION GAP 16 mmol/L (8-16); CALCIUM, TOTAL 9.8 mg/dL (8.8-10.5); CARBON DIOXIDE 20 mmol/L (22-29); CHLORIDE 103 mmol/L (98-107); CREATININE 1.28 mg/dL (0.60-1.30); GLOMERULAR FILTR. RATE CALC > 60 mL/min (>60); GLUCOSE,RANDOM 103 mg/dL (70-110); POTASSIUM 3.9 mmol/L (3.5-5.1); SODIUM SERUM 139 mmol/L (136-145); UREA NITROGEN, BLOOD 16 mg/dL (7-18)
[2023-09-01 22:35] LABS: ALANINE AMINOTRANSFERASE 103 U/L (12-78); ALKALINE PHOSPHATASE 97 U/L (46-116); ASPARTATE AMINOTRANSFERASE 52 U/L (15-37); BILIRUBIN,TOTAL 1.1 mg/dL (0.1-1.0); TOTAL PROTEIN, SERUM 8.6 g/dL (6.4-8.2)
[2023-09-01 22:39] LABS: ALCOHOL, BLOOD (SERUM) < 3 mg/dL (0-10)
[2023-09-01 23:32] VITALS: BP 139/73
== END 2023-09-02 00:25 | disposition home or self-care (01) ==
LOC: EMS 21:27
DX: R55 Syncope and collapse (principal); F41.9 Anxiety disorder, unspecified; J45.909 Unspecified asthma, uncomplicated; F32.A Depression, unspecified; Z88.0 Allergy status to penicillin
CPT/HCPCS: 99283; 80053; 85025; 36415; G0480

== ENCOUNTER 2024-03-24 08:43 | Emergency (ER) | payer MEDICAID, OTHER ==
[~2024-03-24] VITALS: Ht 170.2 cm; Wt 97.7 kg
[~2024-03-24 08:43] MED LIST changes: -AZIT250T9 PO
[2024-03-24 09:00] VITALS: TEMP 98
[2024-03-24] MEDS ORDERED: PRAZ2 PO ×2 (09:04→13:28)
[2024-03-24] MEDS: SODIUM CHLORIDE 0.9% 1,000 ML IV ONE (10:51)
[2024-03-24 11:02] LABS: BASOPHILS % (AUTO) 1.1 % (0.0-2.0); EOSINOPHILS % (AUTO) 0.1 % (1.0-6.0); HEMATOCRIT 48.1 % (41-53); HEMOGLOBIN 16.2 g/dL (13.5-17.5); LYMPHOCYTES # (AUTO) 2.3 K/uL (1.0-4.8); LYMPHOCYTES % (AUTO) 22.8 % (22.0-44.0); MEAN CORPUSCULAR HEMOGLOBIN 30.4 pg (26.0-34.0); MEAN CORPUSCULAR HGB CONC 33.7 G/dL (31.0-37.0); MEAN CORPUSCULAR VOLUME 90 fL (80-100); MONOCYTES # (AUTO) 0.6 K/uL (0.1-1.0); MONOCYTES % (AUTO) 6.4 % (2.0-9.0); NEUTROPHILS # (AUTO) 7.1 K/uL (1.8-7.7); NEUTROPHILS % (AUTO) 69.6 % (40.0-70.0); PLATELET COUNT (AUTO) 198 K/uL (150-450); RED BLOOD CELL COUNT(AUTO) 5.33 MIL/uL (4.50-5.90); WHITE BLOOD COUNT (AUTO) 10.1 K/uL (4.5-11.0)
[2024-03-24 11:33] LABS: ANION GAP 13 mmol/L (8-16); CALCIUM, TOTAL 9.5 mg/dL (8.8-10.5); CARBON DIOXIDE 22 mmol/L (22-29); CHLORIDE 107 mmol/L (98-107); CREATININE 0.82 mg/dL (0.60-1.30); GLOMERULAR FILTR. RATE CALC > 60 mL/min (>60); GLUCOSE,RANDOM 113 mg/dL (70-110); POTASSIUM 4.5 mmol/L (3.5-5.1); SODIUM SERUM 142 mmol/L (136-145); UREA NITROGEN, BLOOD 14 mg/dL (7-18)
[2024-03-24] MEDS ORDERED: PROP20TA96 PO (13:28)
[2024-03-24] MEDS ORDERED: QUET300T5 PO (13:28)
[2024-03-24 13:39] VITALS: BP 124/78; PULSE 75; RESP 18; O2SAT 99
== END 2024-03-24 13:41 | disposition home or self-care (01) ==
LOC: EMS 08:43
DX: F32.A Depression, unspecified (principal); R19.7 Diarrhea, unspecified; J45.909 Unspecified asthma, uncomplicated; Z88.0 Allergy status to penicillin
CPT/HCPCS: 99284; 96360; 80048; 85025; 36415; 93005; J7030

== ENCOUNTER 2025-02-11 21:37 | Emergency (ER) | payer MEDICAID, OTHER ==
[~2025-02-11] VITALS: Ht 170.2 cm; Wt 94.4 kg
[~2025-02-11 21:37] MED LIST changes: +PRAZ2 PO; -PRED-554 PO; +QUET300T5 PO
[2025-02-11 22:05] VITALS: BP 131/81; PULSE 80; RESP 16; TEMP 98.1; O2SAT 100
[2025-02-11 23:22] LABS: CALCIUM, TOTAL 9.5 mg/dL (8.8-10.5); CREATININE 0.85 mg/dL (0.60-1.30); GLOMERULAR FILTR. RATE CALC > 60 mL/min (>60); GLUCOSE,RANDOM 114 mg/dL (70-110); PLATELET COUNT (AUTO) 236 K/uL (150-450); RED BLOOD CELL COUNT(AUTO) 5.70 MIL/uL (4.50-5.90); RED CELL DISTRIBUTION WIDTH 13.9 % (11.5-14.5); SODIUM SERUM 140 mmol/L (136-145); UREA NITROGEN, BLOOD 14 mg/dL (7-18); WHITE BLOOD COUNT (AUTO) 12.5 K/uL (4.5-11.0)
[2025-02-12] MEDS: PRAZOSIN HCL 2 MG CAPSULE PO ONE (02:14)
[2025-02-12] MEDS: QUEtiapine FUMARATE 200 MG ER TABLET PO ONE (02:14)
[2025-02-12] MEDS: DIVALPROEX SODIUM 250 MG DR TABLET PO ONE (02:14)
[2025-02-12] MEDS: PROPRANOLOL HCL 10 MG TABLET PO ONE (02:14)
== END 2025-02-12 03:42 | disposition home or self-care (01) ==
LOC: EMS 21:39
DX: G47.00 Insomnia, unspecified (principal); F41.9 Anxiety disorder, unspecified; R42 Dizziness and giddiness; R53.1 Weakness; F31.9 Bipolar disorder, unspecified; F43.10 Post-traumatic stress disorder, unspecified; J45.909 Unspecified asthma, uncomplicated; Z88.0 Allergy status to penicillin; Z79.899 Other long term (current) drug therapy
CPT/HCPCS: 80048; 85025; 93005; 99284

== ENCOUNTER 2025-04-03 18:47 | Emergency (ER) | payer OTHER ==
[~2025-04-03] VITALS: Ht 170.2 cm; Wt 99.1 kg
[2025-04-03 18:57] VITALS: TEMP 97.7
[2025-04-03 19:08] LABS: COVID AG,FIA SOURCE NASAL SWAB
[2025-04-03 19:25] LABS: PLATELET COUNT (AUTO) 200 K/uL (150-450); RED BLOOD CELL COUNT(AUTO) 5.35 MIL/uL (4.50-5.90); RED CELL DISTRIBUTION WIDTH 13.6 % (11.5-14.5); WHITE BLOOD COUNT (AUTO) 6.5 K/uL (4.5-11.0)
[2025-04-03 19:29] LABS: CALCIUM, TOTAL 8.6 mg/dL (8.8-10.5); CREATININE 1.04 mg/dL (0.60-1.30); GLOMERULAR FILTR. RATE CALC > 60 mL/min (>60); GLUCOSE,RANDOM 119 mg/dL (70-110); SODIUM SERUM 136 mmol/L (136-145); UREA NITROGEN, BLOOD 15 mg/dL (7-18)
[2025-04-03 19:35] LABS: SARS-COV2 (COVID) ANTIGEN,FIA Negative (Negative)
[2025-04-03 19:37] LABS: TROPONIN I-HIGH SENSITIVITY 4 ng/L (<76)
[2025-04-03 19:51] LABS: INFLUENZA TYPE A NEGATIVE FOR TYPE A (NEGATIVE); INFLUENZA TYPE B NEGATIVE FOR TYPE B (NEGATIVE)
[2025-04-03 23:10] VITALS: BP 121/71; PULSE 81; RESP 18; O2SAT 98
== END 2025-04-03 23:11 | disposition home or self-care (01) ==
LOC: EMS 18:47
DX: B34.9 Viral infection, unspecified (principal); M79.18 Myalgia, other site; F31.9 Bipolar disorder, unspecified; F41.9 Anxiety disorder, unspecified; J11.1 Influenza due to unidentified influenza virus with other respiratory manifestations; J45.909 Unspecified asthma, uncomplicated; R07.89 Other chest pain; Z88.0 Allergy status to penicillin; Z79.899 Other long term (current) drug therapy; Z20.822 Contact with and (suspected) exposure to COVID-19
CPT/HCPCS: 71045; 80048; 84484; 85025; 87804; 93005; 99285; 36415-L1; 36415-TC

== ENCOUNTER 2025-05-16 07:04 | Emergency (ER) | payer OTHER ==
[~2025-05-16] VITALS: Ht 170.2 cm; Wt 98.6 kg
[2025-05-16 07:12] VITALS: TEMP 97.7
[2025-05-16] MEDS ORDERED: QUET200T PO ×2 (07:15→08:37)
[2025-05-16 08:12] VITALS: BP 135/74; PULSE 76; RESP 17; O2SAT 99
[2025-05-16] MEDS ORDERED: ATOM10CA4 PO (08:37)
[2025-05-16] MEDS ORDERED: DIVA-153 PO (08:37)
[2025-05-16] MEDS ORDERED: VENL-193 PO (08:37)
[2025-05-16] MEDS: DIVALPROEX SODIUM 500 MG ER TABLET PO ONE (08:50)
[2025-05-16] MEDS: VENLAFAXINE HCL 75 MG ER CAPSULE PO ONE (09:16)
[2025-05-16] MEDS: ATOMOXETINE HCL 40 MG CAPSULE PO ONE (09:16)
== END 2025-05-16 09:24 | disposition home or self-care (01) ==
LOC: EMS 07:04
DX: F33.3 Major depressive disorder, recurrent, severe with psychotic symptoms (principal); F41.9 Anxiety disorder, unspecified; J45.909 Unspecified asthma, uncomplicated; Z88.0 Allergy status to penicillin; Z79.899 Other long term (current) drug therapy
CPT/HCPCS: 99284; Z7502; Z7610